=== PATIENT | male | born 1955 | race Caucasian/White ===

== ENCOUNTER → 2017-11-06 | Outpatient (CLI) | payer OTHER | END | disposition home or self-care (01) | LOC: OIH 14:23 | PROVIDERS: ATTEND Internal Medicine Cardiovascular Disease | DX: Z13.6 Encounter for screening for cardiovascular disorders (principal) | CPT/HCPCS: 75571 ==

== ENCOUNTER 2025-01-09 13:00 | Observation (INO) | payer MEDICARE ==
[~2025-01-09] VITALS: Ht 177.8 cm; Wt 127.0 kg
[2025-01-14 10:18] LABS: BASOPHILS # (AUTO) 0.05 K/uL (0.00-0.20); BASOPHILS % (AUTO) 0.7 % (0.0-5.0); EOSINOPHILS # (AUTO) 0.31 K/uL (0.00-0.70); EOSINOPHILS % (AUTO) 4.6 % (0.0-8.0); HEMATOCRIT 45.3 % (42-54); IMMATURE GRANULOCYTE ABSOLUTE 0.02 K/uL (0-1); LYMPHOCYTES # (AUTO) 1.7 K/uL (1.0-4.8); LYMPHOCYTES % (AUTO) 25.3 % (21.0-51.0); MEAN CORPUSCULAR HEMOGLOBIN 28.7 pg (27.0-33.0); MEAN CORPUSCULAR HGB CONC 32.5 g/dL (32.0-36.0); MEAN CORPUSCULAR VOLUME 88.3 fL (79-99); MONOCYTES # (AUTO) 0.8 K/uL (0.1-1.0); MONOCYTES % (AUTO) 11.3 % (3.0-13.0); NEUTROPHILS # (AUTO) 3.9 K/uL (1.8-7.7); NEUTROPHILS % (AUTO) 57.8 % (40.0-77.0); PLATELET COUNT (AUTO) 178 K/uL (130-400); RED BLOOD CELL COUNT(AUTO) 5.13 MIL/uL (4.50-6.20); RED CELL DISTRIBUTION WIDTH 14.2 % (11.0-15.5); WHITE BLOOD COUNT (AUTO) 6.7 K/uL (4.8-10.8)
[2025-01-14 10:26] LABS: ALBUMIN 3.6 g/dL (3.5-5.0); CARBON DIOXIDE 33 mmol/L (21-32); CHLORIDE 104 mmol/L (101-111); GLOMERULAR FILTR. RATE CALC 82 mL/min (>90); GLUCOSE,RANDOM 104 mg/dL (70-105); POTASSIUM 4.5 mmol/L (3.5-5.1); SODIUM SERUM 140 mmol/L (136-145); UREA NITROGEN, BLOOD 13 mg/dL (7-18)
[2025-01-14 10:35] LABS: PROTHROMBIN TIME 10.6 SEC (9.6-11.6)
[2025-01-14 10:36] LABS: PARTIAL THROMBOPLASTIN TIME 28.5 SEC (26.3-35.5)
[2025-01-14 10:49] VITALS: BP 155/94; PULSE 67; RESP 18; TEMP 97.9
[2025-01-14] MEDS ORDERED: LOSA50TA64 PO (10:52)
[2025-01-14] MEDS ORDERED: MVI PO (10:52)
[2025-01-14] MEDS ORDERED: OMEP20CA12 PO (10:52)
[2025-01-14] MEDS ORDERED: ROSU5TAB51 PO (10:52)
[2025-01-14] MEDS ORDERED: MAGNESIUM PO (10:52)
--- NOTE | 2025-01-14 11:08 | EKG ---
[facility] Test Date: 2025-01-14 Test Time: 11:01:13 Pat Name: SIGRID FARR Department: Patient ID: [id number] Room: Gender: M Diet Technician Registered: [id number] : 1955 Requested By: ISABELLA SEGURA Order Number: [id number] Reading MD: Tj Bustillo Measurements Intervals Cecil Rate: 60 P: 18 NJ: 183 QRS: 26 QRSD: 85 T: 8 QT: 395 QTc: 395 Interpretive Statements Sinus rhythm No previous ECG available for comparison Electronically Signed On 01-15-2025 07:03:00 CDT by Tj Bustillo Please click the below link to view image of tracing.
[2025-01-15] VITALS (28 sets, daily range): BP systolic 102–137; BP diastolic 61–83; PULSE 64–107; RESP 13–20; TEMP 97.4–98.7; O2SAT 94–96
[2025-01-15] MEDS: acetaMINOPHEN 325 MG TAB ONE (06:32)
[2025-01-15] MEDS ORDERED: ROPivacaine 0.5% 5MG/ML 30ML ONE (06:39)
[2025-01-15] MEDS: LACTATED RINGERS 1000ML 1,000 ML IV ONE (06:40)
[2025-01-15] MEDS ORDERED: ketaMINE 50MG/ML SYRINGE 50 MG/ML DISP.SYRIN ONE (06:40)
[2025-01-15] MEDS ORDERED: proPOFol 10 MG/ML 20ML VIAL IV ONE (06:42)
[2025-01-15] MEDS ORDERED: LIDOCAINE PF 100MG/5ML (2%) SYRINGE 5ML ONE (06:42)
[2025-01-15] MEDS ORDERED: rocuRONium bROMide 10MG/1ML 5ML VL ONE ×2 (06:42→08:11)
[2025-01-15] MEDS ORDERED: FENTanyl CITRate PF 50 MCG/1 ML 2ML VIAL ONE (06:43)
[2025-01-15] MEDS: TRANEXAMIC ACID 1000MG/10ML ONE (07:45)
[2025-01-15] MEDS ORDERED: ePHEDrine SULFate 50 MG/ML AMPULE ONE (07:51)
[2025-01-15] MEDS: ceFAZolin SODIUM 1 GM VIAL ONE (07:55)
[2025-01-15] MEDS: ceFAZolin SODIUM 2 GM VIAL ONE (07:55)
[2025-01-15] MEDS ORDERED: ketOROlac 15MG/ML VIAL (15MG/ML) IV SCH (08:00)
[2025-01-15] MEDS ORDERED: HYDROcodone/APAP 5/325 1 TAB TABLET PO PRN ×2 (08:00→09:00)
[2025-01-15] MEDS ORDERED: PoTASSium chloRIDE 20MEQ ER 20 MEQ ERTAB PO PRN (08:00)
[2025-01-15] MEDS ORDERED: FE FUMARATE/FA/MV, MIN COMB#15 1 TAB PO PRN (08:00)
[2025-01-15] MEDS ORDERED: PoTASSium chl 10% ELIXIR 20MEQ 20 MEQ/15 ML UDCUP PO PRN (08:00)
[2025-01-15] MEDS ORDERED: CALCIUM CARB 500MG PO PRN (08:00)
[2025-01-15] MEDS ORDERED: PoTASSium chloRIDE 20MEQ/100ML 100 ML IV PRN (08:00)
[2025-01-15] MEDS ORDERED: ondanSETRON 4MG INJ IVP PRN (08:00)
[2025-01-15] MEDS ORDERED: GLYCOPYRROLATE 0.2 MG/ML 5 ML VIAL ONE (08:10)
[2025-01-15] MEDS ORDERED: ondanSETRON 4MG INJ ONE (08:11)
[2025-01-15] MEDS ORDERED: NEOSTIGMINE METHYLSULFATE 1MG/ML IV ONE (08:11)
[2025-01-15] MEDS ORDERED: dexaMETHasone SOD PHOSPHATE 10MG/ML 1ML VIAL ONE (08:11)
[2025-01-15] MEDS ORDERED: phenylEPHRINE HCL 10 MG/ML 1ML VIAL IV ONE (08:23)
[2025-01-15] MEDS: doCUSate SODIUM 100 MG CAP PO SCH (09:00)
[2025-01-15] MEDS: GABApentin 100 MG CAPSULE PO SCH (09:00)
[2025-01-15] MEDS: polyETHYLene GLYCol 3350 17 GM POWD.PACK PO SCH (09:00)
--- NOTE | 2025-01-15 11:10 | OP ---
Operative Note: DATE OF PROCEDURE: 01/15/25 SURGEON: LAILA HOBSON MD RELIGION INSTRUCTOR: Manan Beach and Vilma Borrego ANESTHESIA: General and interscalene block ANESTHESIOLOGIST/MEDICAL RECORD CLERK: PATIENCE Méndez about is PREOPERATIVE DIAGNOSIS: Right glenohumeral osteoarthritis POSTOPERATIVE DIAGNOSIS: Right glenohumeral osteoarthritis PROCEDURE: Right total shoulder arthroplasty ESTIMATED BLOOD LOSS: 200 cc COMPLICATIONS: None DRAINS: None SPECIMENS: resected bone from the humeral head not sent to pathology IMPLANTS: [employer] medium three peg all-poly glenoid, size 40/16/120 mm FX V135 stem, eccentric adapter, 48 x 21 eccentric humeral head INDICATIONS: 69-year-old male with right shoulder glenohumeral osteoarthritis failing conservative management. After discussion the risk, benefits, and alternatives, the patient voluntarily agreed to undergo the aforementioned procedure. DESCRIPTION OF PROCEDURE: Patient was properly identified in the preoperative holding area. Surgical site marking was verified and surgery consent reviewed. The patient was then taken to the operating room and placed in supine position on the OR table. After induction of general anesthesia, preoperative antibiotics were given, all bony prominences were well-padded as the patient was transitioned into beach chair positioning. The right upper extremity was then prepped and draped in usual sterile fashion. Surgical time out was done verifying correct surgery, side, site, and location to be performed. We then began the procedure by making approximately 12 cm long incision over the deltopectoral interval using a 10 blade. Hemostasis was performed using Bovie electrocautery. We then dissected through the subcutaneous tissues using the Metzenbaums to identify our deltopectoral interval. We then mobilized the cephalic vein laterally as we opened the interval. We then incised the clavi pectoral fascia just lateral to the conjoined tendon and placed our retractor deep to this. We tried to identify the long head of the biceps tendon and did not appreciate it in the bicipital groove. We then began elevating the subscapularis off of its insertion on the humeral head using Bovie electrocautery. The subscapularis was tagged. With external rotation, we brought the humeral head into view and resected osteophytes as well as released the capsule at the inferior aspect of the head. We released a small portion of the pectoralis tendon off of its insertion on the humerus to allow for better exposure. The rongeur was used to open the humeral head at the apex adjacent to the bicipital groove. At this point we began using the sounding instruments, hand reaming up to a size 16. We then placed our retractors protecting soft tissue and pinned the cutting guide for the humeral head resection. We then performed a the osteotomy removing the top of the humeral head. The cut edge was cleaned up with a rongeur. We broached up to a size 40/16 and used the ronguer to clean up our cut. We then subluxated the humerus posteriorly. We then placed our retractors around the glenoid to provide adequate exposure of the glenoid. The labrum was resected with Bovie electrocautery. We then used to the guide to insert our central guidepin on the glenoid face. Over the central guidepin, we reamed the glenoid and for the central peg. We then used the detachable reamer heads to prepare the remaining lug holes in the glenoid. We then thoroughly irrigated out the glenoid bone and cemented our 3 peg glenoid component into position. We held pressure over the glenoid component while the cement cured. We noted using a freer elevator that the component was appropriately seated. We then removed our retractors and dislocated the humerus once more. We removed the protective cap from the cut end of the humerus. With the stem in place, we then noted the asymmetric state of the humerus and elected to use the eccentric humeral head to help address this and avoid pressure on the rotator cuff. Our trial humeral head component was placed and the joint was reduced. We noted there to be significant laxity. We elected to use the 21 mm eccentric humeral head and trialed once more. We noted at that point that the shoulder felt more stable. There was approximately 50% bounce back only with subluxating the hu merus posteriorly. We therefore elected to use this selection of the implants. We then dislocated the humerus and removed the trial components. We thoroughly irrigated out the bone. We seated the final stem implant and trialed once more. The thicker head was still appropriate so we opened the final spacer. head and implanted this in standard fashion using the Bruce taper. We then reduced the humerus once more and ensured appropriate range of motion and stability. We checked the position of the components under fluoroscopy and found them to be appropriate. We then irrigated out the joint and reapproximated the subscapularis. We repaired this using the the #5 Ethibond in a Krakw type stitch. We thoroughly irrigated out the wound. We then began loosely repairing the deltopectoral interval using Ethibond. Subcutaneous tissue was approximated using 2-0 Vicryl. The skin was closed using a running subcuticular 3-0 Monocryl with Dermabond applied. An Optifoam dressing was applied once the Dermabond dri ed. The patient was then placed into a sling, awakened from anesthesia, and taken recovery room in stable condition. Postoperative plan: We will plan to limit the patient's abduction and external rotation while we allow for the subscap to heal. He will do passive range of motion of the shoulder. Assisted forward flexion will be limited to more no more than 60 degrees for the first 4 weeks. LAILA HOBSON MD Jan 15, 2025 11:10
--- NOTE | 2025-01-15 12:06 | HMCIMG ---
SHOULDER LTD 1VW RT REASON: S/P SHOULDER SURGERY. COMPARISON: None TECHNIQUE: Frontal projection of right shoulder was performed. FINDINGS: Right shoulder prosthesis is seen.. Postop changes are seen with soft tissue swelling and soft tissue emphysema. Alignment appears be grossly adequate. There is no acute displaced fracture IMPRESSION: Findings as described above.
[2025-01-15] MEDS ORDERED: ceFAZolin SODIUM 2 GM VIAL IVPB SCH (13:00)
[2025-01-15] MEDS: ketOROlac 15MG/ML VIAL (15MG/ML) IV SCH (14:00)
--- NOTE | 2025-01-15 16:00 | NUR ---
Patient arrived to floor at approx 12:30. PT made first contact with patient at 13:30 however patient was difficult to arouse stating he could not feel his R arm. Informed patient, Pt would follow up which PT did at 14:30, 15:00 and 15:30 at which times patient remained lethargic however easier to arouse. Patient noted with stable BP's however HR between 96-107. Patient reports he feels as if swimming in water and wants to vomit. Spoke to Drew Beach, patient's nurse who stated to defer evaluation until tomorrow morning. Nurse to contact surgeon. PT team to follow.
--- NOTE | 2025-01-15 16:30 | NUR ---
SPOLE WITH DR HOBSON IN REGARDS TO PATIENTS COMPLAINT OF STILL FEELING LIGHTHEADED AND CANT SHAKE FEELING BP 126\79- HR 107 OXYGEN SATURATION OF 95%. PATIENT STATED PATIENT IS VERY SENSITIVE TO PAIN MEDICATIONS AND DOES NOT WANT ANY MEDS ITHER THAN ANTIBIOTIC GIVEN AT THIS TIME, DR HOBSON NOTIFIED.ORDERS RECEIVED AT THIS TIME FROM .
[2025-01-15] MEDS: ceFAZolin SODIUM 2 GM VIAL IVPB SCH (16:43)
--- NOTE | 2025-01-15 17:05 | HMCIMG ---
SHOULDER COMP 2+VWS RT HISTORY: ORIF COMPARISON: None TECHNIQUE: Fluoroscopic images were obtained by the referring physician. FINDINGS: Please see procedure report by the referring physician. IMPRESSION: 1. Findings as described above.
[2025-01-15] MEDS: 0.9%NACL 1000ML 1,000 ML IV SCH (21:58)
[2025-01-16] VITALS (7 sets, daily range): BP systolic 103–148; BP diastolic 60–95; PULSE 74–104; RESP 18–20; TEMP 98.1–99.2; O2SAT 95–98
[2025-01-16] MEDS: HYDROcodone/APAP 5/325 1 TAB TABLET PO PRN (02:47)
[2025-01-16] MEDS: CYCLOBENZAPRINE HCL 10 MG TABLET PO PRN (04:24)
[2025-01-16] MEDS: traMADol HCL 50 MG TABLET PO PRN (04:24)
[2025-01-16 06:08] LABS: HEMATOCRIT 33.4 % (42-54); MEAN CORPUSCULAR HEMOGLOBIN 29.3 pg (27.0-33.0); MEAN CORPUSCULAR HGB CONC 32.9 g/dL (32.0-36.0); MEAN CORPUSCULAR VOLUME 88.8 fL (79-99); RED BLOOD CELL COUNT(AUTO) 3.76 MIL/uL (4.50-6.20); RED CELL DISTRIBUTION WIDTH 14.2 % (11.0-15.5); WHITE BLOOD COUNT (AUTO) 15.1 K/uL (4.8-10.8)
[2025-01-16 06:18] LABS: POTASSIUM 4.3 mmol/L (3.5-5.1)
[2025-01-16] MEDS ORDERED: DOCU-116 PO (17:27)
[2025-01-16] MEDS ORDERED: HYDR-4060 PO (17:27)
[2025-01-16] MEDS ORDERED: CYCL-309 PO (17:27)
--- NOTE | 2025-01-16 19:00 | NUR ---
PATIENT DISCHARGED HOME WITH BELONGINGS AND COPY OF DISCHARGE SUMMARY AND FOLLOW UP INSTRUCTIONS
--- NOTE | 2025-01-17 07:17 | NUR ---
DC PLAN VISITED WITH PATIENT. PATIENT LIVES WITH SPOUSE. INDEPENDENT ABLE TO PERFORM ADL'S. PATIENT HAS NO SERVICES OR DME'S. FEELS SAFE TO RETURN HOME. ASKED IF DISCUSSED DC PLAN AT MD OFFICE SAID YES. THEY WILL CALL HIM WITH WHEN HE IS TO START THE OUTPATIENT THERAPY AT DR. NEWTON OFFICE. CM LET NURSE KNOW OF CONVERSATION. ADVISED IF PATIENT DID NOT LEAVE TO LET CM KNOW SINCE PATIENT IS OBSERVATION AND WOULD NEED TO BE CHANGED TO INPATIENT. DELAY MAY BE BECAUSE PATIENT HAD SOME REACTION TO PAIN MEDICATION AND WAS VERY DROWSY. Addendum: 01/17/25 at 0728 by RONAL ALVAREZ RN CM Amended: Links added.
[2025-01-18] MEDS ORDERED: BisaCODYL 10 MG SUPP.RECT RC PRN (08:00)
== END 2025-01-16 19:00 | disposition home or self-care (01) ==
LOC: DAHIP 01-15 06:02 → 4CH 01-15 11:55
PROVIDERS: ADMIT Student in an Organized Health Care Education/Training Program; ATTEND Student in an Organized Health Care Education/Training Program
DX: M19.011 Primary osteoarthritis, right shoulder (principal); G89.18 Other acute postprocedural pain; I10 Essential (primary) hypertension; E78.5 Hyperlipidemia, unspecified; K21.9 Gastro-esophageal reflux disease without esophagitis; E66.01 Morbid (severe) obesity due to excess calories; Z68.41 Body mass index [BMI] 40.0-44.9, adult; Z98.890 Other specified postprocedural states; Z79.899 Other long term (current) drug therapy; Z86.2 Personal history of diseases of the blood and blood-forming organs and certain disorders involving the immune mechanism
CPT/HCPCS: 82040; 80048 ×2; 85025; 85610; 85730; 84134; 86140; 36415 ×2; 93005; 87641; 96365; 96375; 73020; 23472; 64415; 73030; 96376; 96366; 85027; 97161; 97116 ×2; 97530 ×3; G0378 ×29; A4223 ×2; A4600; C1776 ×4; A4663; J7030; A4565; J7120; J3010; J0690 ×4; J3490 ×6; J1100; J2003; J2704; J2405; J2710; J2795; J1885 ×2; J2371; A4930; C1713; A6254; A4215; A4213; A4222; A4221; A4216